=== PATIENT | male | born 2000 | race Caucasian/White ===

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

== ENCOUNTER 2019-05-01 20:00 | Emergency (ER) | payer BC, OTHER ==
[2019-05-01 20:21] VITALS: BP 127/69; PULSE 77; TEMP 98; BMI 35.6
--- NOTE | 2019-05-01 20:28 | PDOC ---
History of Present Illness - General Chief Complaint: Rash Stated Complaint: RASH Time Seen by Provider: 05/01/19 20:27 History Source: Patient - History of Present Illness Initial Comments: 05/01/19 20:46 Chief complaint: Rash Patient 18-year-old male with autism who can communicate with us in a snf her son was diagnosed with varicella last night who developed a "rash" and patient was sent to the ER to see if this was varicella. Patient has no fever or other complaints. Unknown about his varicella titer. Review of systems limited patient does state that it is a little itchy. GENERAL: The patient is awake, alert, and fully oriented, in no acute distress. HEAD: Normal with no signs of trauma. EYES: Pupils equal, round and reactive to light, sclera anicteric, conjunctiva clear. ENT: pharynx: no erythema, no exudate, uvula midline NECK: supple CHEST: clear, nontender, rr ABD: soft, nontender BACK: no tenderness or signs of injury EXTREMITIES: Normal range of motion, no edema. NEUROLOGICAL: Normal speech, normal gait. SKIN: Warm, Dry, 1 small scab to right middle back one small papule under the left breast, no signs of cellulitis, no vesicles, no purpura, no petechiae.. Past History - Past Medical History Allergies/Adverse Reactions: Allergies Allergy/AdvReac Type Severity Reaction Status Date / Time No Known Allergies Allergy Verified 05/01/19 20:21 Home Medications: Ambulatory Orders Acetaminophen 650 mg PO Q4HWA PRN 07/13/17 Loperamide HCl [Loperamide] 2 mg PO TID PRN 07/13/17 Risperidone 1 mg PO BID 07/13/17 Topiramate [Topamax] 50 mg PO BID 07/13/17 Asthma: Yes COPD: No Psychiatric Problems: Yes (autism, on psych meds) - Psycho Social/Smoking Cessation Hx Smoking History: Never smoked Have you smoked in the past 12 months: No Information on smoking cessation initiated: No Hx Alcohol Use: No Drug/Substance Use Hx: No Substance Use Type: None *Physical Exam - Vital Signs Last Vital Signs Temp Pulse Resp BP Pulse Ox 98.0 F 77 18 127/69 100 05/01/19 20:12 05/01/19 20:12 05/01/19 20:12 05/01/19 20:12 05/01/19 20:12 Medical Decision Making - Medical Decision Making 05/01/19 20:48 18-year-old male with autism, sent to the ER to evaluate for varicella since he had a rash, someone from the home was diagnosed last night. He has 2 small spots, that are not specific, one is a scab on his back, the other is a papule under her left breast. It is not obviously varicella and there is no further treatment tonight. Discussed with medical language specialist Dr. Castillo who agreed with assessment. They will do further monitoring. She stated that the staff is very nervous. Discussed issues, findings, results, applicable medications and treatments and follow-up. All these were understood and all questions were answered Discharge - Discharge Information Problems reviewed: Yes Clinical Impression/Diagnosis: Rash Condition: Stable Disposition: HOME - Follow up/Referral - Patient Discharge Instructions Additional Instructions: It is not obvious that this is a varicella rash. There is no further treatment that needs to be done in the ER tonight. Continue to monitor the rash, and have followed up by his doctor Return to the ER if fever, getting sicker or other concerns - Post Discharge Activity
== END 2019-05-01 20:46 | disposition home or self-care (01) ==
LOC: JERFT 20:00
DX: R21 Rash and other nonspecific skin eruption (principal); F84.0 Autistic disorder
CPT/HCPCS: 99282-25